=== PATIENT | female | born 1950 | race African-American/Black ===

== ENCOUNTER 2022-10-11 08:08 | Inpatient (IN) | payer MEDICARE, OTHER ==
[~2022-10-11] VITALS: Ht 157.5 cm; Wt 49.9 kg
[~2022-10-11 08:08] MED LIST: AMLODIPINE PO; ATENOLOL PO; INSLAN SQ; RENVELA PO; VITA1CAP64 PO
[2022-10-11] MEDS ORDERED: LORAZEPAM 2MG/ML CPJ IV ONE (09:00)
[2022-10-11 09:30] LABS: BASOPHILS % 1.6 % (0.0-2.0); EOSINOPHILS % 0.6 % (0.0-5.0); HEMATOCRIT. 34.7 % (36.0-48.0); HEMOGLOBIN. 11.3 g/dL (12.0-16.0); LYMPHOCYTES % 22.9 % (20.0-50.0); MEAN CORPUSCULAR HEMOGLOBIN 31.3 pg (28.0-32.0); MEAN CORPUSCULAR VOLUME 96.1 fL (81.0-99.0); MEAN PLATELET VOLUME 9.3 fl (7.4-10.4); MONOCYTES % 12.1 % (2.0-8.0); NEUTROPHILS % 62.8 % (40.0-76.0); PLATELET 75 x1000/uL (130-400); RED BLOOD CELL COUNT 3.62 mill/uL (4.2-5.4); RED CELL DISTRIBUTION WIDTH 15.9 % (11.6-14.6)
[2022-10-11 09:38] LABS: CHLORIDE 98 mEq/L (98-107)
[2022-10-11 09:47] LABS: ETHANOL BLOOD < 10 mg/dL
[2022-10-11] MEDS ORDERED: IOHEXOL-350 100 ML BOTTLE ONE (09:57)
[2022-10-11 10:09] LABS: INR 1.3; PROTHROMBIN TIME 13.8 sec (9.6-11.0)
[2022-10-11 15:20] VITALS: BP 186/80
[2022-10-11 16:00] VITALS: BP 186/86
[2022-10-11] MEDS ORDERED: ONDANSETRON HCL 4MG/2ML INJ IV PRN (19:45)
[2022-10-11] MEDS ORDERED: DEXTROSE 50% WATER 50ML SYRINGE IV PRN (19:45)
[2022-10-11] MEDS ORDERED: HYDRALAZINE 20MG/ML VIAL IV PRN (19:45)
[2022-10-11] MEDS ORDERED: MAGNESIUM/ALUMINUM HYDROXIDE/SIMETHICONE 30ML UDC PO PRN (19:45)
[2022-10-11] MEDS ORDERED: DIPHENHYDRAMINE 50MG/ML VIAL IV PRN (19:45)
[2022-10-11] MEDS ORDERED: ZOLPIDEM TARTRATE 5MG TABLET PO PRN (19:45)
[2022-10-11] MEDS ORDERED: ACETAMINOPHEN 325MG TABLET PO PRN ×2 (19:45)
[2022-10-11 20:00] VITALS: BP 132/78
[2022-10-11 20:30] VITALS: BP 132/78
[2022-10-11] MEDS: BLOOD SUGAR DIAGNOSTIC STRIP TEST SCH (20:31)
[2022-10-11] MEDS: INSULIN LISPRO 100 UNITS/ML SUBCUT SCH (20:31)
[2022-10-11] MEDS: SODIUM CHLORIDE 0.9% INJ 3ML FLUSH IVF SCH (21:02)
[2022-10-12 00:49] VITALS: BP 165/76
[2022-10-12 04:00] VITALS: BP 149/46
[2022-10-12] MEDS: SODIUM CHLORIDE 0.9% INJ 3ML FLUSH IVF SCH ×3 (05:09→21:03)
[2022-10-12] MEDS: BLOOD SUGAR DIAGNOSTIC STRIP TEST SCH ×4 (06:32→21:03)
[2022-10-12 07:42] VITALS: BP 147/66
[2022-10-12] MEDS: INSULIN LISPRO 100 UNITS/ML SUBCUT SCH ×4 (08:07→21:00)
[2022-10-12] MEDS: FOLIC ACID/VITAMIN B COMP W-C TABLET PO SCH (08:38)
[2022-10-12] MEDS: SEVELAMER CARBONATE 800 MG TABLET PO SCH ×3 (08:38→17:38)
[2022-10-12] MEDS: AMLODIPINE 10MG TABLET PO SCH (08:38)
[2022-10-12 11:03] VITALS: BP 136/55
[2022-10-12 15:37] VITALS: BP 134/59
[2022-10-12 20:00] VITALS: BP 143/64
[2022-10-13] VITALS: BP 130/61
[2022-10-13 04:00] VITALS: BP 129/69
[2022-10-13] MEDS: SODIUM CHLORIDE 0.9% INJ 3ML FLUSH IVF SCH ×2 (06:00→14:22)
[2022-10-13] MEDS: BLOOD SUGAR DIAGNOSTIC STRIP TEST SCH ×2 (06:35→12:40)
[2022-10-13] MEDS: INSULIN LISPRO 100 UNITS/ML SUBCUT SCH ×2 (07:26→13:10)
[2022-10-13 08:00] VITALS: BP_SYST 119; BP_SYST 131; BP_SYST 147; BP_DIAS 46; BP_DIAS 91; BP_DIAS 95
[2022-10-13] MEDS: SEVELAMER CARBONATE 800 MG TABLET PO SCH ×2 (08:09→13:12)
[2022-10-13] MEDS: AMLODIPINE 10MG TABLET PO SCH (08:57)
[2022-10-13] MEDS: FOLIC ACID/VITAMIN B COMP W-C TABLET PO SCH (08:57)
[2022-10-13 12:00] VITALS: BP 132/47
[2022-10-13 15:29] VITALS: BP 132/47
[2022-10-13 16:00] VITALS: BP_SYST 126; BP_SYST 131; BP_SYST 134; BP_DIAS 54; BP_DIAS 55; BP_DIAS 60
== END 2022-10-13 18:10 | disposition home or self-care (01) | DRG 70 ==
LOC: ER 08:08 → 7WST 13:29 → ER 14:24
PROVIDERS: ADMIT Internal Medicine; ATTEND Internal Medicine
DX: G93.41 Metabolic encephalopathy (principal); N18.6 End stage renal disease; I12.0 Hypertensive chronic kidney disease with stage 5 chronic kidney disease or end stage renal disease; R00.1 Bradycardia, unspecified; K21.9 Gastro-esophageal reflux disease without esophagitis; E11.22 Type 2 diabetes mellitus with diabetic chronic kidney disease; Z99.2 Dependence on renal dialysis
CPT/HCPCS: 36415; 70496; 70498; 71045; 80053; 80320; 82962; 83605; 84484; 85025; 93005; 99291; J0360; J1815; J2060; Q9967; G0480

== ENCOUNTER 2022-12-13 01:34 | Inpatient (IN) | payer MEDICARE ==
[~2022-12-13] VITALS: Ht 160 cm; Wt 49.6 kg
[2022-12-13] VITALS (39 sets, daily range): BP systolic 48–132; BP diastolic 22–88; PULSE 66–120; RESP 12–135; TEMP 97.5–98; O2SAT 4
[2022-12-13] MEDS ORDERED: ONDANSETRON HCL 4MG/2ML INJ IV ONE (02:15)
[2022-12-13 02:16] LABS: HEMATOCRIT. 35.2 % (36.0-48.0); HEMOGLOBIN. 11.7 g/dL (12.0-16.0); MEAN CORPUSCULAR HEMOGLOBIN 31.6 pg (28.0-32.0); MEAN CORPUSCULAR VOLUME 95.5 fL (81.0-99.0); MEAN PLATELET VOLUME 8.8 fl (7.4-10.4); PLATELET 130 x1000/uL (130-400); RED BLOOD CELL COUNT 3.69 mill/uL (4.2-5.4); RED CELL DISTRIBUTION WIDTH 16.6 % (11.6-14.6)
[2022-12-13 02:21] LABS: CHLORIDE 102 mEq/L (98-107)
[2022-12-13 05:21] LABS: PLATELET ESTIMATE NORMAL
[2022-12-13 10:14] LABS: BG BASE EXCESS -9.3 mmol/L (-2.0-2.0); BG CARBOXYHEMOGLOBIN 0.4 % (0.5-1.5); BG DEOXYHEMOGLOBIN 0.7 % (0.0-5.0); BG FRACTION INSPIRED OXYGEN 100; BG HCO3 ACT 18.7 mmol/L (22.0-26.0); BG METHEMOGLOBIN 0.5 % (0.0-1.5); BG OXYGEN SATURATION 99.3 % (92.0-98.5); BG OXYHEMOGLOBIN 98.4 % (94.0-97.0); BG PCO2 49.7 mmHg (35.0-45.0); BG PH 7.194 (7.350-7.450); BG PO2 229.8 mmHg (75.0-100.0); BG SAMPLE SITE LEFT FEMORAL; BG TOTAL HEMOGLOBIN 11.6 g/dL (12.0-18.0); BG TOTAL RESPIRATORY RATE 34 b/min; BG VENT MODE VENT - AC
[2022-12-13] MEDS ORDERED: NOREPINEPHRINE 8 MG in DEXT 5% WATER 242 ML IV PRN (10:15)
[2022-12-13] MEDS ORDERED: NOREPINEPHRINE 8MG/250ML PMX 250 ML IV PRN (10:30)
[2022-12-13] MEDS ORDERED: ACETAMINOPHEN 325MG TABLET PO PRN (10:30)
[2022-12-13] MEDS ORDERED: ONDANSETRON HCL 4MG/2ML INJ IV PRN (10:30)
[2022-12-13] MEDS: PROPOFOL 10MG/ML 100ML 100 ML IV PRN ×2 (10:35→11:32)
[2022-12-13] MEDS ORDERED: PANTOPRAZOLE SODIUM 40 MG/VIAL IV SCH (11:00)
[2022-12-13 11:19] LABS: BASOPHILS % 0.3 % (0.0-2.0); EOSINOPHILS % 0.4 % (0.0-5.0); HEMATOCRIT. 36.1 % (36.0-48.0); HEMOGLOBIN. 11.3 g/dL (12.0-16.0); LYMPHOCYTES % 25.9 % (20.0-50.0); MEAN CORPUSCULAR VOLUME 102.6 fL (81.0-99.0); MEAN PLATELET VOLUME 9.1 fl (7.4-10.4); MONOCYTES % 3.8 % (2.0-8.0); NEUTROPHILS % 69.6 % (40.0-76.0); PLATELET 121 x1000/uL (130-400); RED BLOOD CELL COUNT 3.52 mill/uL (4.2-5.4); RED CELL DISTRIBUTION WIDTH 17.5 % (11.6-14.6)
[2022-12-13] MEDS ORDERED: PHENYLEPHRINE 50 MG in DEXT 5% WATER 245 ML IV PRN (11:30)
[2022-12-13] MEDS ORDERED: SODIUM BICARBONATE 100 MEQ in DEXTROSE 5% WATER 1,000 ML IV SCH (11:30)
[2022-12-13 11:46] LABS: CHLORIDE 120 mEq/L (98-107)
[2022-12-13] MEDS ORDERED: IPRATROPIUM/ALBUTEROL 0.5-3(2.5)MG/3ML NEB HHN SCH (12:00)
[2022-12-13] MEDS ORDERED: NOREPINEPHRINE 32 MG in DEXT 5% WATER 218 ML IV PRN (12:30)
[2022-12-13] MEDS ORDERED: WATER IV ONE (13:00)
[2022-12-13] MEDS ORDERED: POTASSIUM CHLORIDE IV ONE (13:00)
[2022-12-13] MEDS ORDERED: DEXT 5% IV ONE (13:00)
[2022-12-13] MEDS ORDERED: IOHEXOL-350 100 ML BOTTLE ONE (13:07)
[2022-12-13] MEDS ORDERED: KCL 20MEQ/100ML PREMIX 100 ML IV SCH (14:00)
[2022-12-13] MEDS ORDERED: AMIODARONE HCL 900 MG in DEXT 5% WATER 482 ML IV SCH (14:00)
[2022-12-13] MEDS: KCL 20MEQ/100ML PREMIX 100 ML IV SCH ×3 (15:20→19:54)
[2022-12-13] MEDS: PHENYLEPHRINE 50 MG in DEXT 5% WATER 245 ML IV PRN ×2 (15:20→21:39)
[2022-12-13] MEDS ORDERED: VASOPRESSIN 20 UNIT in SODIUM CHLORIDE 0.9% 99 ML IV PRN (18:45)
[2022-12-13] MEDS ORDERED: DOPAMINE 400MG/250ML PREMIX 250 ML IV PRN (19:45)
[2022-12-13] MEDS ORDERED: EPINEPHRINE 10 MG in SODIUM CHLORIDE 0.9% 240 ML IV PRN (21:30)
[2022-12-13] MEDS ORDERED: DEXTROSE 50% WATER 50ML SYRINGE IV ONE (21:57)
[2022-12-14] MEDS ORDERED: POTASSIUM CHLORIDE 20MEQ/PACKET PO SCH (09:00)
== END 2022-12-13 21:57 | DRG 208 ==
LOC: ER 01:34 → MICUSO 11:52
PROVIDERS: ADMIT Internal Medicine; ATTEND Emergency Medicine
PROC: 5A1935Z Respiratory Ventilation, Less than 24 Consecutive Hours (ICD-10-PCS; principal; 2022-12-13)
PROC: 0BH17EZ Insertion of Endotracheal Airway into Trachea, Via Natural or Artificial Opening (ICD-10-PCS; 2022-12-13)
PROC: 5A12012 Performance of Cardiac Output, Single, Manual (ICD-10-PCS; 2022-12-13)
DX: J96.01 Acute respiratory failure with hypoxia (principal); N18.6 End stage renal disease; G93.40 Encephalopathy, unspecified; E87.20 Acidosis, unspecified; R57.9 Shock, unspecified; I12.0 Hypertensive chronic kidney disease with stage 5 chronic kidney disease or end stage renal disease; N17.9 Acute kidney failure, unspecified; R64 Cachexia; Z68.1 Body mass index [BMI] 19.9 or less, adult; I46.9 Cardiac arrest, cause unspecified; E11.22 Type 2 diabetes mellitus with diabetic chronic kidney disease; D63.1 Anemia in chronic kidney disease; E87.6 Hypokalemia; I25.10 Atherosclerotic heart disease of native coronary artery without angina pectoris; I45.10 Unspecified right bundle-branch block; I48.91 Unspecified atrial fibrillation; Z99.2 Dependence on renal dialysis; I25.2 Old myocardial infarction; Z95.1 Presence of aortocoronary bypass graft; Z79.4 Long term (current) use of insulin
CPT/HCPCS: 31500; 36415; 36600; 71045; 80053; 82375; 82805; 82962; 83880; 84484; 85025; 87070; 87077; 87186; 87426; 87493; 93005; 93970; 94002; 94640; 99285; C9113; J0282; J1265; J2370; J2405; J2704; J3480; J3490; J7050; J7060; J7070; Q9967